=== PATIENT | male | born 2000 | race Caucasian/White ===

== ENCOUNTER 2020-06-22 14:49 | Emergency (ER) | payer OTHER ==
[~2020-06-22] VITALS: Ht 175.3 cm; Wt 63.5 kg
[~2020-06-22 14:49] MED LIST: ALBU.083IS; AMOCLA250S PO; AMOX50SU PO; Bactrim Ds Tab1 EACH PO; CEPH500 PO; CODACEE120 PO; HYDACE7.5L PO; HYDR120LO TOP; IBUP600 PO; Norco 5-325 Ta1 EACH PO; PRED5EL PO; Prednisone10 MG PO; RXCODACESY PO; RXOXYACE PO; SULTRIEL PO; TRIA80TC TOP
== END 2020-06-22 18:54 | disposition left against medical advice (07) ==
LOC: ER 14:49
DX: J02.9 Acute pharyngitis, unspecified (principal); Z53.21 Procedure and treatment not carried out due to patient leaving prior to being seen by health care provider
CPT/HCPCS: 99282

== ENCOUNTER 2021-01-03 03:19 | Emergency (ER) | payer OTHER ==
[~2021-01-03] VITALS: Ht 177.8 cm; Wt 70.3 kg
[2021-01-03] MEDS ORDERED: PARO10 (03:41)
[2021-01-03] MEDS ORDERED: TRAZ50 (03:41)
[2021-01-03 03:59] LABS: Source, Urine Voided
[2021-01-03 04:03] LABS: Bilirubin, Urine Neg (Neg); Blood, Urine 3+ (Neg); Glucose Qualitative, Urine Neg (Neg); Ketones, Urine 1+ (Neg); Leukocyte Esterase, Urine 1+ (Neg); Nitrite, Urine Neg (Neg); Protein, Urine 2+ (Neg); Specific Gravity, Urine 1.025 (1.003-1.022); Urobilinogen, Urine 1+ (Normal)
[2021-01-03 04:15] LABS: Amorphous Light (0-Heavy); Appearance, Urine Clear (Clear); Bacteria Rare /hpf; Calcium Oxalate Crystals Few /hpf; Color, Urine Yellow (P-Yellow); Mucus Light (0-Heavy); Spermatozoa Few /hpf; Squamous Epithelial Cells Not Seen /hpf (Few)
[2021-01-05 03:10] LABS: CHLAMYDIA TRACHOMATIS, NAA Negative (Negative)
== END 2021-01-03 04:48 | disposition home or self-care (01) ==
LOC: ER 03:19
PROVIDERS: Emergency Medicine
DX: N48.89 Other specified disorders of penis (principal); Z87.442 Personal history of urinary calculi
CPT/HCPCS: 51798; 81001; 87086; 87491; 87591; 99283

== ENCOUNTER 2021-01-27 18:38 | Emergency (ER) | payer OTHER ==
[~2021-01-27] VITALS: Ht 177.8 cm; Wt 70.8 kg
[~2021-01-27 18:38] MED LIST changes: +PARO10; +TRAZ50
[2021-01-27] MEDS ORDERED: Indomethacin50 MG PO (21:56)
[2021-01-27] MEDS ORDERED: Desyrel150 MG PO (22:35)
[2021-01-27] MEDS ORDERED: PARO25 (22:35)
== END 2021-01-27 22:37 | disposition home or self-care (01) ==
LOC: ER 18:38
DX: G62.9 Polyneuropathy, unspecified (principal); Z79.899 Other long term (current) drug therapy
CPT/HCPCS: 73630; 96372; 99283-25; J1885

== ENCOUNTER 2025-01-03 00:37 | Emergency (ER) | payer OTHER ==
[~2025-01-03] VITALS: Ht 175.3 cm; Wt 90.7 kg
[~2025-01-03 00:37] MED LIST changes: +Desyrel150 MG PO; +Indomethacin50 MG PO; +PARO25
[2025-01-03 01:50] VITALS: BP 126/78
[2025-01-03] MEDS ORDERED: NS 1,000 ML IV SCH ×3 (02:05→04:50)
[2025-01-03] MEDS ORDERED: Ketorolac Tromethamine 30mg Vial IV ONE ×2 (09:20→11:10)
[2025-01-03] MEDS ORDERED: LEVFLO500 PO (11:20)
[2025-01-03] MEDS ORDERED: LevoFLOXacin 500 MG Tab PO ONE (11:20)
== END 2025-01-03 11:52 | disposition home or self-care (01) ==
LOC: ER 00:37
DX: N48.89 Other specified disorders of penis (principal); Z79.899 Other long term (current) drug therapy
CPT/HCPCS: 76857; 76870; 96374; 96376; 99284-25; A9270; J1885; J7030

== ENCOUNTER 2025-08-13 09:25 | Emergency (ER) | payer OTHER ==
[~2025-08-13] VITALS: Ht 177.8 cm; Wt 90.7 kg
[~2025-08-13 09:25] MED LIST changes: +LEVFLO500 PO
[2025-08-13] MEDS ORDERED: Ondansetron HCl 2 MG / ML 2ML Vial IV ONE (10:10)
[2025-08-13] MEDS ORDERED: Ketorolac Tromethamine 30mg Vial IV ONE ×2 (10:15→13:45)
[2025-08-13 10:29] LABS: BASOPHILS ABSOLUTE AUTO 0.04 K/mm3 (0.00-0.23); BASOPHILS PERCENT AUTO 1 % (0-2); EOSINOPHILS ABSOLUTE AUTO 0.25 K/mm3 (0.00-0.68); EOSINOPHILS PERCENT AUTO 5 % (0-6); Hematocrit 42.1 % (37.0-53.0); Hemoglobin 14.3 g/dL (13.5-17.5); IMMATURE GRAN ABSOLUTE AUTO 0.02 K/mm3 (0.00-0.10); IMMATURE GRAN PERCENT AUTO 0 % (0-1); LYMPHOCYTES ABSOLUTE AUTO 1.61 K/mm3 (0.84-5.20); LYMPHOCYTES PERCENT AUTO 29 % (21-46); MONOCYTES ABSOLUTE AUTO 0.43 K/mm3 (0.16-1.47); MONOCYTES PERCENT AUTO 8 % (4-13); Mean Corpuscular HGB Conc 34.0 g/dL (31.5-36.5); Mean Corpuscular Volume 88 fL (80-100); NEUTROPHILS ABSOLUTE AUTO 3.17 K/mm3 (1.96-9.15); NEUTROPHILS PERCENT AUTO 57 % (41-73); NRBC ABSOLUTE 0.00 K/mm3 (0.00-0.02); NRBC Auto 0.0 /100 WBC (0.0-0.2); Platelet Count 198 K/mm3 (150-400); RDW Coefficient Variation 11.9 % (11.7-14.2); RDW Standard Deviation 38.1 fL (35.1-46.3)
[2025-08-13 10:59] LABS: Alanine Aminotransfer (ALT/SGP 83.0 U/L (12-78); Albumin, Blood 4.2 g/dL (3.4-5.0); Albumin/Globulin Ratio 1.2 (0.8-1.8); Anion Gap 6.0 mmol/L (3-11); Aspartate Aminotrans (AST/SGOT 44.0 U/L (12-37); Bilirubin, Total 0.6 mg/dL (0.1-1.0); Blood Urea Nitrogen 16.0 mg/dL (8-24); CO2, Blood 26.0 mmol/L (21-32); Calcium, Blood 9.4 mg/dL (8.5-10.1); Chloride, Blood 109.0 mmol/L (98-108); Creatinine, Blood 0.87 mg/dL (0.60-1.20); Globulin, Blood 3.5 g/dL (2.2-4.0); Glucose, Blood 95.0 mg/dL (70-99); Potassium, Blood 4.8 mmol/L (3.5-5.5); Sodium, Blood 136.0 mmol/L (136-145); Total Protein, Blood 7.7 g/dL (6.4-8.2)
[2025-08-13 13:47] VITALS: BP 145/94
[2025-08-13] MEDS ORDERED: IBUP800 PO (13:52)
[2025-08-13] MEDS ORDERED: ONDA4ODT MM (13:52)
== END 2025-08-13 14:11 | disposition home or self-care (01) ==
LOC: ER 09:25
PROVIDERS: Emergency Medicine
DX: R10.33 Periumbilical pain (principal); Z79.899 Other long term (current) drug therapy
CPT/HCPCS: 74177; 80053; 83690; 85025; 96374-59; 99284-25; J1885; Q9967